=== PATIENT | female | born 1940 | race Caucasian/White ===

== ENCOUNTER 2018-07-02 21:49 | Emergency (ER) | payer MEDICARE, OTHER ==
[~2018-07-02] VITALS: Ht 162.6 cm; Wt 73.0 kg
[~2018-07-02 21:49] MED LIST: ACET-7568 PO; ASPI325T49 PO; CALC500C17 PO; DOCU100C82 PO; LANTUS SC; LISI10TA11 PO; LOV80I SUBQ; METO25TA PO; NITR0.4S14 TD; PIPE1PDS28 IV; SIMV40TA1 PO; VANC1PDS14 IV; [UNRECOGNIZED DRUG - CODE] IV
[2018-07-02 21:58] VITALS: BP 164/70
--- NOTE | 2018-07-02 22:00 | NUR ---
PT AMBULATED TO BED 5 WITH VSS
--- NOTE | 2018-07-02 22:10 | NUR ---
PT PRESENTS TO ED WITH C/O R ELBOW PAIN SUDDEN ONSET X TODAY AT 0630. PT DENIES TRAUMA OR INJURY. FULL ROM IN R ELBOW. CMS INTACT. NO SWELLING OR DISCOLORATION NOTED. PT PLACED INTO BED, PENDING MD THORPE.
[2018-07-03 00:10] VITALS: BP 155/69
== END 2018-07-03 00:10 | disposition home or self-care (01) ==
LOC: MED 21:49
DX: M25.521 Pain in right elbow (principal); J45.909 Unspecified asthma, uncomplicated; E11.9 Type 2 diabetes mellitus without complications; K21.9 Gastro-esophageal reflux disease without esophagitis; I10 Essential (primary) hypertension; Z79.4 Long term (current) use of insulin; Z79.82 Long term (current) use of aspirin; Z79.899 Other long term (current) drug therapy
CPT/HCPCS: 73080; 99283; Q0092

== ENCOUNTER 2019-01-14 19:49 | Emergency (ER) | payer MEDICARE, OTHER ==
[~2019-01-14] VITALS: Ht 160 cm; Wt 68.9 kg
[~2019-01-14 19:49] MED LIST changes: +ASPI-1205 PO; -ASPI325T49 PO
[2019-01-14 19:54] VITALS: BP 133/57
--- NOTE | 2019-01-14 19:55 | NUR ---
PT WITH WALKER TO ER BED 08
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
[2019-01-14 21:17] VITALS: BP 133/57
--- NOTE | 2019-01-14 21:17 | NUR ---
Patient discharged with v/s stable. Written and verbal after care instructions given and explained. Patient alert, oriented and verbalized understanding of instructions. Ambulatory with steady gait. All questions addressed prior to discharge. ID band removed. Patient advised to follow up with PMD. Rx of NORCO AND IBUPROFEN WAS given. Patient educated on indication of medication including possible reaction and side effects. Opportunity to ask questions provided and answered. PT STATED HER PAIN HAD DECREASED TO 4/10 PRIOR TO D/C. Addendum: 01/14/19 at 2125 by [email or web address] Patient discharged with v/s stable. Written and verbal after care instructions given and explained. Patient alert, oriented and verbalized understanding of instructions. Ambulatory WITH WALKER ASSISTANCE. All questions addressed prior to discharge. ID band removed. Patient advised to follow up with PMD. Rx of NORCO AND IBUPROFEN WAS given. Patient educated on indication of medication including possible reaction and side effects. Opportunity to ask questions provided and answered. PT STATED HER PAIN HAD DECREASED TO 4/10 PRIOR TO D/C.
== END 2019-01-14 21:17 | disposition home or self-care (01) ==
LOC: MED 19:49
DX: M54.2 Cervicalgia (principal); J45.909 Unspecified asthma, uncomplicated; E11.9 Type 2 diabetes mellitus without complications; K21.9 Gastro-esophageal reflux disease without esophagitis; I10 Essential (primary) hypertension; Z95.1 Presence of aortocoronary bypass graft; Z79.4 Long term (current) use of insulin; Z79.2 Long term (current) use of antibiotics; Z79.891 Long term (current) use of opiate analgesic; Z79.82 Long term (current) use of aspirin; Z79.899 Other long term (current) drug therapy; V89.2XXA Person injured in unspecified motor-vehicle accident, traffic, initial encounter; Y93.89 Activity, other specified; Y92.410 Unspecified street and highway as the place of occurrence of the external cause; Y99.8 Other external cause status
CPT/HCPCS: 99283